=== PATIENT | female | born 1935 | race Caucasian/White ===

== ENCOUNTER → 2017-01-08 | Day surgery (SDC) | payer MEDICARE, OTHER ==
[~2017-01-08] MED LIST: IV RINGERS SOLUTION,LACTATED 1,000 ML IV ONE
== END | disposition home or self-care (01) ==
LOC: SURG 09:22
PROVIDERS: ATTEND Internal Medicine Gastroenterology
DX: Z53.8 Procedure and treatment not carried out for other reasons (principal)
CPT/HCPCS: 82947; J7120